=== PATIENT | male | born 1990 | race Caucasian/White ===

== ENCOUNTER 2024-05-23 07:00 | Day surgery (SDC) | payer BC ==
[~2024-05-23 07:00] MED LIST: HYDROmorphone 0.5 MG/0.5 ML SYRINGE IVP PRN; LIDOCAINE 1% (10MG/ML) FOR IV START INTRADERMA PRN; Pre Op ABX Message 1 EACH MISC MISCELLANE ONE
[2024-05-23 07:23] VITALS: TEMP 97
[2024-05-23] MEDS: IV FLUID CONTINUATION 1,000 ML IV ONE (07:37)
[2024-05-23] MEDS: LACTATED RINGERS 1,000 ML IV SCH (07:38)
[2024-05-23] MEDS: HEPARIN SODIUM,PORCINE 5,000 UNIT/ML 1 ML VIAL SQ PRN (07:39)
[2024-05-23] MEDS: ACETAMINOPHEN TAB 500 MG TAB PO PRN (07:39)
[2024-05-23] MEDS: ONDANSETRON 4 MG/2 ML VIAL IVP ONE (07:39)
[2024-05-23] MEDS ORDERED: SUCCINYLCHOLINE CHLORIDE 200 MG/10 ML VIAL IV ONE (08:54)
[2024-05-23] MEDS ORDERED: LIDOCAINE 1% INJ 10MG/ML (20 ML MDV) ONE (08:54)
[2024-05-23] MEDS ORDERED: ceFAZolin 1 GM/50 ML BAG (PMX) ONE (08:54)
[2024-05-23] MEDS ORDERED: KETAMINE HCL IN 0.9 % NACL 50 MG/5 ML SYRINGE ONE (08:54)
[2024-05-23] MEDS ORDERED: PROPOFOL 10 MG/ML 20 ML VIAL IV ONE (08:54)
[2024-05-23] MEDS ORDERED: MIDAZOLAM 2 MG/2 ML VIAL ONE (08:54)
[2024-05-23] MEDS ORDERED: fentaNYL (PF) 50 MCG/ML 2 ML AMP ONE (08:54)
[2024-05-23] MEDS: SODIUM CHLORIDE 0.9% 50 ML with ceFAZolin 2,000 MG IV ONE (08:59)
[2024-05-23] MEDS: LIDOCAINE 1%-EPI 1:100,000 20 ML VIAL SQ ONE (09:20)
--- NOTE | 2024-05-23 09:51 | P.OP ---
Date of Procedure: 05/23/24 Preoperative Diagnosis: Hemorrhoids Postoperative Diagnosis: Hemorrhoids Procedure(s) Performed: Excision of internal/external hemorrhoid Anesthesia: ESTRELLITA Surgeon: Mihir Zuñiga Estimated Blood Loss (ml): 5 Pathology: other (Hemorrhoids) Condition: stable Disposition: PACU Description of Procedure: The patient is placed on the op table in the prone jackknife position after receiving general anesthesia. His anus was prepped draped you sterile fashion. Patient had a large internal/external hemorrhoid at the left lateral position. This area as this is 1% local Xylocaine. Using robotic scissors the hemorrhoidectomy was performed. Specimen to pathology. It was suspicious for condyloma. The wound bed for bleeding. There is no bleeding seen. Patient Toller procedure well. Sent to recovery in stable condition.
[2024-05-23 11:02] VITALS: BP 118/60; PULSE 64; RESP 20
== END 2024-05-23 11:12 | disposition home or self-care (01) ==
LOC: OR 07:00
PROVIDERS: ATTEND Surgery
DX: K64.4 Residual hemorrhoidal skin tags (principal); Z88.1 Allergy status to other antibiotic agents; Z88.0 Allergy status to penicillin
CPT/HCPCS: 46260; S2900; 88304